=== PATIENT | male | born 1940 | race Caucasian/White ===

== ENCOUNTER 2017-08-20 06:57 | Inpatient (IN) | payer MEDICARE, BC ==
[~2017-08-20] VITALS: Ht 175.3 cm; Wt 90.0 kg
[2017-08-20] VITALS (7 sets, daily range): BP systolic 122–136; BP diastolic 67–79
[~2017-08-20 06:57] MED LIST: ASPI-1071 PO; ATOR20TA PO; AZIT500T2 PO; TICA90TA2 PO
[2017-08-20] MEDS ORDERED: aspirin 81mg tab.chew PO ONE (07:10)
[2017-08-20 07:28] LABS: BASOPHILS % (AUTO) 0.1 % (0-1); EOSINOPHILS # (AUTO) 0.3 X10'3 (0-0.9); EOSINOPHILS % (AUTO) 3.8 % (0-6); HEMOGLOBIN 12.9 g/dl (14.0-17.9); LYMPHOCYTES # (AUTO) 1.1 X10'3 (1.1-4.8); LYMPHOCYTES % (AUTO) 14.1 % (21-51); MEAN CORPUSCULAR HEMOGLOBIN 29.8 PG (27.0-31.0); MEAN CORPUSCULAR HGB CONC 33.1 % (33.0-36.5); MEAN CORPUSCULAR VOLUME 90.1 FL (78-98); MEAN PLATELET VOLUME 6.7 FL (7.4-10.4); MONOCYTES # (AUTO) 0.6 X10'3 (0-0.9); MONOCYTES % (AUTO) 7.7 % (2-12); NEUTROPHILS % (AUTO) 74.3 % (42-75); PLATELET COUNT 281 X10'3 (140-440); RED BLOOD COUNT 4.33 X10'6 (4.70-6.10); RED CELL DISTRIBUTION WIDTH 14.5 % (11.5-14.5)
[2017-08-20 07:48] LABS: ALANINE AMINOTRANSFERASE 21 U/L (12-78); ALBUMIN 3.5 G/DL (3.4-5.0); ALKALINE PHOSPHATASE 69 IU/L (46-116); ANION GAP 8 (8-16); ASPARTATE AMINO TRANSFERASE 18 U/L (10-37); BILIRUBIN,TOTAL 0.3 MG/DL (0.1-1.0); BLOOD UREA NITROGEN 11 MG/DL (7-18); BUN/CREATININE RATIO 10.5 (5.4-32.0); CALCIUM 9.7 MG/DL (8.5-10.1); CHLORIDE 107 MMOL/L (99-107); CREATININE 1.05 MG/DL (0.60-1.10); GLUCOSE 99 MG/DL (70-104); POTASSIUM 4.6 MMOL/L (3.5-5.1); SODIUM 142 MMOL/L (135-145); TOTAL CARBON DIOXIDE 26.8 MMOL/L (24-32); TOTAL PROTEIN 6.9 G/DL (6.4-8.2); eGFR 69 ML/MIN
[2017-08-20 07:54] LABS: MAGNESIUM 1.9 MG/DL (1.5-2.4)
[2017-08-20] MEDS ORDERED: acetaminophen 325mg tablet PO PRN (09:00)
[2017-08-20] MEDS ORDERED: magnesium Cl slow-release 64mg tablet PO PRN (09:00)
[2017-08-20] MEDS ORDERED: ondansetron/PF 4mg/2ml inj IV PRN (09:00)
[2017-08-20] MEDS ORDERED: mag hydrox/Alum hydrox/simeth 30ml oral suspension PO PRN (09:00)
[2017-08-20] MEDS ORDERED: potassium Cl 40MEQ/NS 500ml 500 ML IV PRN ×2 (09:00)
[2017-08-20] MEDS ORDERED: morphine sulfate 8 MG/ML SYRINGE IV ONE (09:00)
[2017-08-20] MEDS ORDERED: magnesium hydroxide 30ml (MOM) UD suspension PO PRN (09:00)
[2017-08-20] MEDS ORDERED: nitroGLYCERIN 0.4mg SUBLingual tab SL PRN ×2 (09:00→09:05)
[2017-08-20] MEDS ORDERED: ondansetron/PF 4mg/2ml inj IV ONE (09:00)
[2017-08-20] MEDS ORDERED: potassium Cl 20 mEq SR tablet PO PRN ×2 (09:00)
[2017-08-20] MEDS ORDERED: magnesium 4gm in 100ml NS 100 ML IV PRN (09:00)
[2017-08-20] MEDS ORDERED: magnesium 2GM in 50ml NS 50 ML IV PRN (09:00)
[2017-08-20] MEDS: aspirin 81mg tablet.DR PO SCH (09:05)
[2017-08-20] MEDS ORDERED: regadenoson 0.4mg/5ml syringe IV ONE (09:05)
[2017-08-20] MEDS ORDERED: aminophylline 250mg/10ml inj. IV PRN (09:05)
[2017-08-20] MEDS ORDERED: metoprolol tartrate 1mg/ml inj IV PRN (09:05)
[2017-08-20] MEDS: ticagrelor 90mg tablet PO SCH (20:34)
[2017-08-20] MEDS: heparin, porcine 5000 units/ml vial SQ SCH (20:39)
[2017-08-20] MEDS ORDERED: atorvastatin 20mg tablet PO SCH (21:00)
[2017-08-21 02:00] VITALS: BP 136/73
[2017-08-21 05:29] LABS: BASOPHILS % (AUTO) 0.3 % (0-1); EOSINOPHILS # (AUTO) 0.4 X10'3 (0-0.9); EOSINOPHILS % (AUTO) 7.5 % (0-6); HEMATOCRIT 37.5 % (42.0-52.0); HEMOGLOBIN 12.5 g/dl (14.0-17.9); LYMPHOCYTES # (AUTO) 1.1 X10'3 (1.1-4.8); LYMPHOCYTES % (AUTO) 19.9 % (21-51); MEAN CORPUSCULAR HGB CONC 33.2 % (33.0-36.5); MEAN CORPUSCULAR VOLUME 90.4 FL (78-98); MEAN PLATELET VOLUME 7.1 FL (7.4-10.4); MONOCYTES # (AUTO) 0.5 X10'3 (0-0.9); MONOCYTES % (AUTO) 10.3 % (2-12); NEUTROPHILS # (AUTO) 3.3 X10'3 (1.8-7.7); PLATELET COUNT 255 X10'3 (140-440); RED BLOOD COUNT 4.15 X10'6 (4.70-6.10); RED CELL DISTRIBUTION WIDTH 14.5 % (11.5-14.5); WHITE BLOOD COUNT 5.3 X10'3 (4.5-11.0)
[2017-08-21 06:21] LABS: ALANINE AMINOTRANSFERASE 21 U/L (12-78); ALBUMIN 3.1 G/DL (3.4-5.0); ALBUMIN/GLOBULIN RATIO 0.9 (1.1-1.5); ALKALINE PHOSPHATASE 61 IU/L (46-116); ANION GAP 6 (8-16); ASPARTATE AMINO TRANSFERASE 18 U/L (10-37); BILIRUBIN,TOTAL 0.4 MG/DL (0.1-1.0); BLOOD UREA NITROGEN 12 MG/DL (7-18); BUN/CREATININE RATIO 11.1 (5.4-32.0); CALCIUM 8.9 MG/DL (8.5-10.1); CHLORIDE 107 MMOL/L (99-107); CREATININE 1.08 MG/DL (0.60-1.10); GLUCOSE 99 MG/DL (70-104); MAGNESIUM 1.8 MG/DL (1.5-2.4); POTASSIUM 4.3 MMOL/L (3.5-5.1); SODIUM 143 MMOL/L (135-145); TOTAL CARBON DIOXIDE 29.7 MMOL/L (24-32); TOTAL PROTEIN 6.6 G/DL (6.4-8.2); eGFR 67 ML/MIN
[2017-08-21 07:00] VITALS: BP 118/62
[2017-08-21] MEDS: ticagrelor 90mg tablet PO SCH (08:00)
[2017-08-21] MEDS: heparin, porcine 5000 units/ml vial SQ SCH (08:00)
[2017-08-21] MEDS ORDERED: K and/or MAG REPLACEMENT MC SCH (08:00)
[2017-08-21] MEDS: aspirin 81mg tablet.DR PO SCH (08:00)
== END 2017-08-21 11:40 | disposition home or self-care (01) | DRG 313 ==
LOC: ER 06:58 → ED HOLD 09:24 → PCU 3S 10:03
PROVIDERS: ADMIT Internal Medicine; ATTEND Internal Medicine
DX: R07.9 Chest pain, unspecified (principal); I25.10 Atherosclerotic heart disease of native coronary artery without angina pectoris; J44.9 Chronic obstructive pulmonary disease, unspecified; E78.5 Hyperlipidemia, unspecified; I25.2 Old myocardial infarction; Z95.5 Presence of coronary angioplasty implant and graft; Z79.82 Long term (current) use of aspirin; Z79.899 Other long term (current) drug therapy; Z88.5 Allergy status to narcotic agent; Z87.01 Personal history of pneumonia (recurrent)
CPT/HCPCS: 36415; 71010; 80053; 83735; 83880; 84484; 85025; 93005; 93306; 99285; J1644; J7030

== ENCOUNTER 2018-01-28 06:26 | Emergency (ER) | payer MEDICARE, BC ==
[~2018-01-28] VITALS: Ht 597.6 cm; Wt 90.0 kg
[~2018-01-28 06:26] MED LIST changes: -AZIT500T2 PO; +COLC1TAB2 PO
[2018-01-28] MEDS ORDERED: colchicine 0.6mg tablet PO ONE ×2 (07:00→08:15)
[2018-01-28] MEDS ORDERED: HYDROcodone/acetaminophen 10/325mg tab PO ONE (07:00)
[2018-01-28 07:31] LABS: BASOPHILS % (AUTO) 0.2 % (0-1); EOSINOPHILS # (AUTO) 0.5 X10'3 (0-0.9); EOSINOPHILS % (AUTO) 7.5 % (0-6); HEMATOCRIT 36.3 % (42.0-52.0); HEMOGLOBIN 12.3 g/dl (14.0-17.9); LYMPHOCYTES # (AUTO) 0.8 X10'3 (1.1-4.8); LYMPHOCYTES % (AUTO) 11.7 % (21-51); MEAN CORPUSCULAR HEMOGLOBIN 30.7 PG (27.0-31.0); MEAN CORPUSCULAR HGB CONC 33.9 % (33.0-36.5); MEAN CORPUSCULAR VOLUME 90.6 FL (78-98); MEAN PLATELET VOLUME 6.8 FL (7.4-10.4); MONOCYTES # (AUTO) 0.7 X10'3 (0-0.9); MONOCYTES % (AUTO) 9.9 % (2-12); NEUTROPHILS % (AUTO) 70.7 % (42-75); PLATELET COUNT 257 X10'3 (140-440); RED BLOOD COUNT 4.01 X10'6 (4.70-6.10); RED CELL DISTRIBUTION WIDTH 14.9 % (11.5-14.5); WHITE BLOOD COUNT 7.1 X10'3 (4.5-11.0)
[2018-01-28 08:16] LABS: ALANINE AMINOTRANSFERASE 13 U/L (12-78); ALBUMIN 3.2 G/DL (3.4-5.0); ALBUMIN/GLOBULIN RATIO 0.8 (1.1-1.5); ALKALINE PHOSPHATASE 76 IU/L (46-116); ANION GAP 7 (8-16); ASPARTATE AMINO TRANSFERASE 17 U/L (10-37); BILIRUBIN,TOTAL 0.5 MG/DL (0.1-1.0); BLOOD UREA NITROGEN 13 MG/DL (7-18); BUN/CREATININE RATIO 12.7 (5.4-32.0); CALCIUM 9.1 MG/DL (8.5-10.1); CHLORIDE 104 MMOL/L (99-107); CREATININE 1.02 MG/DL (0.60-1.10); GLUCOSE 91 MG/DL (70-104); POTASSIUM 3.9 MMOL/L (3.5-5.1); SODIUM 137 MMOL/L (135-145); TOTAL CARBON DIOXIDE 26.5 MMOL/L (24-32); eGFR 71 ML/MIN
[2018-01-28] MEDS ORDERED: HYDR-565 PO (08:39)
[2018-01-28] MEDS ORDERED: NAPR-1154 PO (08:39)
[2018-01-28 08:46] VITALS: BP 120/72
== END 2018-01-28 08:47 | disposition home or self-care (01) ==
LOC: ER 06:27
DX: M10.9 Gout, unspecified (principal); I25.10 Atherosclerotic heart disease of native coronary artery without angina pectoris; E78.00 Pure hypercholesterolemia, unspecified; I25.2 Old myocardial infarction; J44.9 Chronic obstructive pulmonary disease, unspecified; Z98.890 Other specified postprocedural states; Z79.82 Long term (current) use of aspirin; Z79.899 Other long term (current) drug therapy
CPT/HCPCS: 36415; 80053; 84550; 85025; 85651; 99284

== ENCOUNTER 2018-09-15 16:08 | Emergency (ER) | payer MEDICARE, BC ==
[~2018-09-15] VITALS: Ht 175.3 cm; Wt 91.0 kg
[~2018-09-15 16:08] MED LIST changes: +NAPR-1154 PO
[2018-09-15] MEDS ORDERED: ibuprofen tablet 400 MG TABLET PO ONE (17:05)
[2018-09-15] MEDS ORDERED: cyclobenzaprine 10mg tablet PO ONE (17:05)
[2018-09-15] MEDS ORDERED: morphine 4 MG/ML inj SYRINge IM ONE (17:05)
--- NOTE | 2018-09-15 17:16 | NUR ---
pt to xray
[2018-09-15] MEDS ORDERED: ondansetron 4mg rapidly disintigrating tab PO ONE (17:20)
--- NOTE | 2018-09-15 17:41 | NUR ---
to ct scan via wc
--- NOTE | 2018-09-15 19:07 | NUR ---
patient readjusting and taking sling on and off and walking around room despite being asked to remain in the bed due to the medications he received
[2018-09-15 19:08] VITALS: BP 118/60
[2018-09-15] MEDS ORDERED: HYDR-3965 PO (19:08)
[2018-09-15] MEDS ORDERED: ONDA8TAB13 PO (19:08)
== END 2018-09-15 19:30 | disposition home or self-care (01) ==
LOC: ER 16:08
DX: S49.91XA Unspecified injury of right shoulder and upper arm, initial encounter (principal); I25.10 Atherosclerotic heart disease of native coronary artery without angina pectoris; E78.00 Pure hypercholesterolemia, unspecified; I25.2 Old myocardial infarction; J44.9 Chronic obstructive pulmonary disease, unspecified; Z98.61 Coronary angioplasty status; Z98.890 Other specified postprocedural states; Z88.5 Allergy status to narcotic agent; Z79.82 Long term (current) use of aspirin; Z79.899 Other long term (current) drug therapy; W19.XXXA Unspecified fall, initial encounter; Y93.23 Activity, snow (alpine) (downhill) skiing, snowboarding, sledding, tobogganing and snow tubing; Y92.89 Other specified places as the place of occurrence of the external cause; Y99.8 Other external cause status
CPT/HCPCS: 71046; 73010; 73030; 73080; 73200; 96372; 99284; J2270

== ENCOUNTER 2019-01-19 16:00 | Emergency (ER) | payer MEDICARE, BC ==
[~2019-01-19] VITALS: Ht 175.3 cm; Wt 85.0 kg
--- NOTE | 2019-01-19 10:40 | NUR ---
Pt report rec'd from ED , juan antonio Duke. Pt is up to the floor, settled in, and comfortable. Pt VSS, no chest pain, pt c/o pain in left shoulder "with movement". Pt SCD's applied per orders. will continue to monitor.
[~2019-01-19 16:00] MED LIST changes: +ONDA8TAB13 PO
[2019-01-19] MEDS ORDERED: aspirin 81mg tab.chew PO ONE (16:45)
[2019-01-19] MEDS ORDERED: nitroGLYCERIN 0.4mg SUBLingual tab SL PRN ×2 (16:45→20:35)
[2019-01-19 17:00] LABS: BASOPHILS # (AUTO) 0.1 X10'3 (0-0.2); BASOPHILS % (AUTO) 0.6 % (0-1); EOSINOPHILS # (AUTO) 0.2 X10'3 (0-0.9); EOSINOPHILS % (AUTO) 1.3 % (0-6); HEMATOCRIT 37.6 % (42.0-52.0); HEMOGLOBIN 12.3 g/dl (14.0-17.9); LYMPHOCYTES # (AUTO) 1.1 X10'3 (1.1-4.8); LYMPHOCYTES % (AUTO) 9.1 % (21-51); MEAN CORPUSCULAR HGB CONC 32.7 g/dL (33.0-36.5); MEAN CORPUSCULAR VOLUME 91.8 FL (78-98); MEAN PLATELET VOLUME 7.3 FL (7.4-10.4); MONOCYTES # (AUTO) 0.9 X10'3 (0-0.9); MONOCYTES % (AUTO) 6.9 % (2-12); NEUTROPHILS # (AUTO) 10.1 X10'3 (1.8-7.7); NEUTROPHILS % (AUTO) 82.1 % (42-75); PLATELET COUNT 314 X10'3 (140-440); RED CELL DISTRIBUTION WIDTH 13.8 % (11.5-14.5); WHITE BLOOD COUNT 12.3 X10'3 (4.5-11.0)
[2019-01-19 17:05] LABS: PARTIAL THROMBOPLASTIN TIME 28 SECONDS (22-32)
[2019-01-19 17:09] LABS: ALANINE AMINOTRANSFERASE 21 U/L (12-78); ALBUMIN 3.1 G/DL (3.4-5.0); ALBUMIN/GLOBULIN RATIO 0.8 (1.1-1.5); ALKALINE PHOSPHATASE 78 IU/L (46-116); ANION GAP 5 (8-16); ASPARTATE AMINO TRANSFERASE 15 U/L (10-37); BILIRUBIN,TOTAL 0.3 MG/DL (0.1-1.0); BLOOD UREA NITROGEN 15 MG/DL (7-18); CALCIUM 8.5 MG/DL (8.5-10.1); CHLORIDE 105 MMOL/L (99-107); CREATININE 1.15 MG/DL (0.60-1.10); GLUCOSE 137 MG/DL (70-104); POTASSIUM 3.9 MMOL/L (3.5-5.1); SODIUM 138 MMOL/L (135-145); TOTAL PROTEIN 7.2 G/DL (6.4-8.2); eGFR 62 ML/MIN
[2019-01-19 18:13] LABS: C-REACTIVE PROTEIN 2.95 MG/DL (0.0-0.5)
[2019-01-19] MEDS ORDERED: FLO0.4C PO (19:10)
[2019-01-19] MEDS ORDERED: MONT10TA21 PO (19:10)
[2019-01-19] MEDS ORDERED: PRED5TAB PO (19:10)
[2019-01-19] MEDS ORDERED: ROSU10TA2 PO (19:10)
[2019-01-19] MEDS ORDERED: EZET10TA13 PO (19:30)
[2019-01-19] MEDS ORDERED: ondansetron/PF 4mg/2ml inj IV PRN (20:35)
[2019-01-19] MEDS ORDERED: morphine 2 MG/ML inj. syringe IV PRN ×2 (20:35)
[2019-01-19] MEDS ORDERED: magnesium hydroxide 30ml (MOM) UD suspension PO PRN (20:35)
[2019-01-19] MEDS ORDERED: mag hydrox/Alum hydrox/simeth 30ml oral suspension PO PRN (20:35)
[2019-01-19] MEDS ORDERED: acetaminophen 325mg tablet PO PRN (20:35)
[2019-01-19] MEDS ORDERED: HYDROcodone/acetaminophen 5mg/325mg tablet PO PRN (20:35)
[2019-01-19 20:49] VITALS: BP 148/90
--- NOTE | 2019-01-20 00:06 | NUR ---
dr Torre has rounded on the patient at this time and the Pt describes pain that involves the left shoulder "with movement". there is no chest pain, all labs are clear, VSS pt has been d/c'd to home with self care. all paperwork is reviewed and PIV is d/c'd. 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 all belongings sent with pt.
[2019-01-20] MEDS ORDERED: aspirin 81mg tablet.DR PO SCH ×2 (08:00)
[2019-01-20] MEDS ORDERED: tamsulosin 0.4mg capsule PO SCH (08:00)
[2019-01-20] MEDS ORDERED: montelukast 10mg tablet PO SCH (08:00)
[2019-01-20] MEDS ORDERED: predniSONE 5mg tablet PO SCH (08:00)
[2019-01-20] MEDS ORDERED: ezetimibe 10mg tablet PO SCH (08:00)
[2019-01-20] MEDS ORDERED: naproxen 500mg tablet PO SCH (08:00)
[2019-01-20] MEDS ORDERED: atorvastatin 20mg tablet PO SCH (08:00)
== END 2019-01-20 00:42 | disposition home or self-care (01) ==
LOC: ER 16:01 → UNDOADMIN 22:22 → SUR 3N 22:22 → EDBEDREQ 22:37 → UNDODISIN 01-20 00:42 → ER 01-20 00:42
DX: R07.9 Chest pain, unspecified (principal); I25.10 Atherosclerotic heart disease of native coronary artery without angina pectoris; E78.00 Pure hypercholesterolemia, unspecified; I25.2 Old myocardial infarction; J44.9 Chronic obstructive pulmonary disease, unspecified; Z98.890 Other specified postprocedural states; Z88.5 Allergy status to narcotic agent; Z79.82 Long term (current) use of aspirin; Z79.899 Other long term (current) drug therapy; Z95.1 Presence of aortocoronary bypass graft
CPT/HCPCS: 36415; 71045; 80053; 84484; 85025; 85610; 85651; 85730; 86140; 87070; 93005; 99285; G0378

== ENCOUNTER 2019-04-19 13:15 | Emergency (ER) | payer MEDICARE, BC ==
[~2019-04-19] VITALS: Ht 175.3 cm; Wt 84.0 kg
[~2019-04-19 13:15] MED LIST changes: -ATOR20TA PO; -COLC1TAB2 PO; +FLO0.4C PO; +MONT10TA21 PO; -ONDA8TAB13 PO; +PRED5TAB PO; +ROSU10TA2 PO; -TICA90TA2 PO; +ZET10T PO
[2019-04-19 13:17] VITALS: BP 131/86
[2019-04-19 13:47] LABS: BASOPHILS % (AUTO) 0.4 % (0-1); EOSINOPHILS # (AUTO) 0.4 X10'3 (0-0.9); EOSINOPHILS % (AUTO) 5.1 % (0-6); HEMATOCRIT 40.3 % (42.0-52.0); HEMOGLOBIN 13.4 g/dl (14.0-17.9); LYMPHOCYTES % (AUTO) 13.9 % (21-51); MEAN CORPUSCULAR HEMOGLOBIN 30.3 PG (27.0-31.0); MEAN CORPUSCULAR HGB CONC 33.4 g/dL (33.0-36.5); MEAN CORPUSCULAR VOLUME 90.6 FL (78-98); MONOCYTES # (AUTO) 0.7 X10'3 (0-0.9); MONOCYTES % (AUTO) 9.4 % (2-12); NEUTROPHILS # (AUTO) 5.3 X10'3 (1.8-7.7); NEUTROPHILS % (AUTO) 71.2 % (42-75); PLATELET COUNT 313 X10'3 (140-440); RED BLOOD COUNT 4.44 X10'6 (4.70-6.10); RED CELL DISTRIBUTION WIDTH 14.6 % (11.5-14.5); WHITE BLOOD COUNT 7.5 X10'3 (4.5-11.0)
[2019-04-19 14:03] LABS: ALANINE AMINOTRANSFERASE 22 U/L (12-78); ALBUMIN 3.4 G/DL (3.4-5.0); ALBUMIN/GLOBULIN RATIO 0.9 (1.1-1.5); ALKALINE PHOSPHATASE 73 IU/L (46-116); ANION GAP 7 (8-16); ASPARTATE AMINO TRANSFERASE 15 U/L (10-37); BILIRUBIN,TOTAL 0.4 MG/DL (0.1-1.0); BLOOD UREA NITROGEN 15 MG/DL (7-18); BUN/CREATININE RATIO 13.9 (5.4-32.0); CALCIUM 8.6 MG/DL (8.5-10.1); CHLORIDE 105 MMOL/L (99-107); CREATININE 1.08 MG/DL (0.60-1.10); GLUCOSE 114 MG/DL (70-104); SODIUM 137 MMOL/L (135-145); TOTAL CARBON DIOXIDE 24.9 MMOL/L (24-32); TOTAL PROTEIN 7.3 G/DL (6.4-8.2); eGFR 66 ML/MIN
[2019-04-19 14:06] LABS: PARTIAL THROMBOPLASTIN TIME 27 SECONDS (22-32)
== END 2019-04-19 17:43 | disposition home or self-care (01) ==
LOC: ER 13:16
DX: R68.84 Jaw pain (principal); R06.02 Shortness of breath; M25.512 Pain in left shoulder; I25.10 Atherosclerotic heart disease of native coronary artery without angina pectoris; E78.00 Pure hypercholesterolemia, unspecified; I25.2 Old myocardial infarction; J44.9 Chronic obstructive pulmonary disease, unspecified; Z98.61 Coronary angioplasty status; Z95.1 Presence of aortocoronary bypass graft; Z98.890 Other specified postprocedural states
CPT/HCPCS: 36415; 71045; 80053; 82948; 84484; 85025; 85379; 85610; 85730; 93005; 99284

== ENCOUNTER 2019-06-09 07:41 | Inpatient (IN) | payer MEDICARE, BC ==
[~2019-06-09] VITALS: Ht 175.3 cm; Wt 83.2 kg
[2019-06-09] MEDS ORDERED: ipratropium/albuterol 3ml nebule NEB ONE (08:35)
[2019-06-09] MEDS ORDERED: methylPREDNISolone sod succ 125mg/2ml vial IV ONE (08:35)
--- NOTE | 2019-06-09 08:50 | NUR ---
RT AT BEDSIDE FOR BREATHING TREATMENT PER ORDERS NOW.
[2019-06-09 08:54] LABS: BASOPHILS % (AUTO) 0.1 % (0-1); D-DIMER 0.82 MG/L FEU (0-0.50); EOSINOPHILS % (AUTO) 0.1 % (0-6); HEMOGLOBIN 12.6 g/dl (14.0-17.9); LYMPHOCYTES # (AUTO) 0.4 X10'3 (1.1-4.8); LYMPHOCYTES % (AUTO) 4.7 % (21-51); MEAN CORPUSCULAR HEMOGLOBIN 30.4 PG (27.0-31.0); MEAN CORPUSCULAR HGB CONC 33.2 g/dL (33.0-36.5); MEAN CORPUSCULAR VOLUME 91.4 FL (78-98); MEAN PLATELET VOLUME 6.9 FL (7.4-10.4); MONOCYTES # (AUTO) 0.6 X10'3 (0-0.9); MONOCYTES % (AUTO) 7.3 % (2-12); NEUTROPHILS # (AUTO) 7.8 X10'3 (1.8-7.7); NEUTROPHILS % (AUTO) 87.8 % (42-75); PLATELET COUNT 276 X10'3 (140-440); RED BLOOD COUNT 4.16 X10'6 (4.70-6.10); RED CELL DISTRIBUTION WIDTH 15.2 % (11.5-14.5); WHITE BLOOD COUNT 8.9 X10'3 (4.5-11.0)
[2019-06-09 08:58] LABS: ALANINE AMINOTRANSFERASE 34 U/L (12-78); ALBUMIN 3.1 G/DL (3.4-5.0); ALBUMIN/GLOBULIN RATIO 0.8 (1.1-1.5); ALKALINE PHOSPHATASE 70 IU/L (46-116); ANION GAP 12 (8-16); ASPARTATE AMINO TRANSFERASE 38 U/L (10-37); BILIRUBIN,TOTAL 0.3 MG/DL (0.1-1.0); BLOOD UREA NITROGEN 15 MG/DL (7-18); CALCIUM 8.6 MG/DL (8.5-10.1); CHLORIDE 105 MMOL/L (99-107); CREATININE 1.15 MG/DL (0.60-1.10); GLUCOSE 99 MG/DL (70-104); POTASSIUM 3.8 MMOL/L (3.5-5.1); SODIUM 141 MMOL/L (135-145); TOTAL CARBON DIOXIDE 24.4 MMOL/L (24-32); TOTAL PROTEIN 7.2 G/DL (6.4-8.2); eGFR 62 ML/MIN
[2019-06-09] MEDS ORDERED: albuterol 2.5 MG/3 ML nebule CONTNEB PRN (09:15)
--- NOTE | 2019-06-09 09:37 | NUR ---
UPDATED GARCIA PA OF PT LACTIC 3.9, DISCUSSED FLUID RESUCITATION RE SEPSIS, ORDERS TO FOLLOW.
[2019-06-09] MEDS ORDERED: normal saline 1000ML IV soln IVB ONE ×2 (09:40→11:55)
--- NOTE | 2019-06-09 09:41 | NUR ---
FLU SWAB COLLECTED BY YADI HOWARD, WALKED DOWN TO LAB BY KITTY FISCHER NOW
[2019-06-09] MEDS ORDERED: iohexol 350MG/ML 100ml bottle IV ONE (09:54)
[2019-06-09] MEDS ORDERED: PRED5TAB PO (11:42)
[2019-06-09] MEDS ORDERED: ASPI-611 PO (11:42)
[2019-06-09] MEDS ORDERED: LEVO750T21 PO (11:42)
[2019-06-09] MEDS ORDERED: MELO-100 PO (11:42)
[2019-06-09] MEDS ORDERED: FOLI0.4T14 PO (11:42)
[2019-06-09] MEDS ORDERED: ALBU8HFA PO (11:43)
--- NOTE | 2019-06-09 11:49 | NUR ---
GARCIA INFORMED 2 HOUR LACTIC 5.0, DISCUSSED FLUID RESUSCUTATION BASED ON WEIGHT IS 2500 ML, GARCIA DOES NOT WANT TO GIVE ANY ADDITIONAL FLUIDS AT THIS TIME DUE TO PT AGE
[2019-06-09] MEDS ORDERED: acetaminophen 325mg tablet PO PRN (12:30)
[2019-06-09] MEDS ORDERED: magnesium hydroxide 30ml (MOM) UD suspension PO PRN (12:30)
[2019-06-09] MEDS ORDERED: oseltamivir phos 75mg capsule PO ONE (12:30)
[2019-06-09] MEDS ORDERED: CefTRIAXone/D5W-Rocephin 1gm 50 ML IV ONE (12:30)
[2019-06-09] MEDS ORDERED: ondansetron/PF 4mg/2ml inj IV PRN (12:30)
[2019-06-09] MEDS ORDERED: mag hydrox/Alum hydrox/simeth 30ml oral suspension PO PRN (12:30)
--- NOTE | 2019-06-09 12:55 | NUR ---
Patient in room ED 5. I have received report from Darshan HOWARD and had the opportunity to ask questions and assume patient care.
[2019-06-09 13:00] VITALS: BP 104/72
--- NOTE | 2019-06-09 13:00 | NUR ---
Patient arrived to PCU unit. Vital signs taken and within normal limits and stable. wallpaper scraper placed. Patient oriented to room and call light.
[2019-06-09] MEDS: methylPREDNISolone sod succ 125mg/2ml vial IV SCH ×2 (13:45→20:35)
[2019-06-09] MEDS: normal saline 1000ml 1,000 ML IV SCH ×2 (13:46→22:09)
[2019-06-09 15:00] VITALS: BP 122/59
[2019-06-09] MEDS: ipratropium/albuterol 3ml nebule NEB SCH ×3 (15:00→22:18)
[2019-06-09] MEDS ORDERED: ATOR20TA66 PO (17:05)
[2019-06-09] MEDS ORDERED: FURO-150 PO (17:05)
[2019-06-09] MEDS ORDERED: DIGO125T97 PO (17:05)
[2019-06-09] MEDS ORDERED: METO-384 PO (17:05)
[2019-06-09] MEDS ORDERED: CYAN500T46 PO (17:05)
[2019-06-09] MEDS ORDERED: BUDE10.2 INH (17:05)
[2019-06-09] MEDS ORDERED: RIVA20TA PO (17:05)
[2019-06-09] MEDS ORDERED: PANT20TA3 PO (17:05)
[2019-06-09] MEDS ORDERED: SPIR25TA5 PO (17:05)
[2019-06-09] MEDS ORDERED: CHOL100044 PO (17:05)
[2019-06-09] MEDS ORDERED: LISI-604 PO (17:05)
[2019-06-09] MEDS ORDERED: FLO0.4C PO (17:05)
[2019-06-09] MEDS ORDERED: OLAN5TAB26 PO (17:05)
[2019-06-09] MEDS ORDERED: VENL75TA4 PO (17:05)
[2019-06-09] MEDS ORDERED: LORA10TA7 PO (17:05)
[2019-06-09] MEDS ORDERED: CYCL-394 PO (17:22)
[2019-06-09 18:00] VITALS: BP 115/63
--- NOTE | 2019-06-09 18:16 | NUR ---
Boris documentation: I have reviewed and agree with all interventions, assessments performed and documented by Thuy HOWARD. Addendum: 06/09/19 at 1826 by Eva García RN [facility] Medication Administration: For this medication-pass time frame, all medication were reviewed, dispensed, administered and documented per hospital policy by Thuy HOWARD.
--- NOTE | 2019-06-09 18:30 | NUR ---
Patient in room PCU 3019. I have received report from GIGI and had the opportunity to ask questions and assume patient care.
[2019-06-09] MEDS ORDERED: enoxaparin 100mg/ml syringe SUBCUT ONE (18:35)
[2019-06-09] MEDS ORDERED: enoxaparin 60mg/0.6ml syringe SUBCUT ONE (18:40)
[2019-06-09] MEDS ORDERED: enoxaparin 30mg/0.3ml syringe SUBCUT ONE (18:40)
[2019-06-09 18:50] VITALS: BP 115/63
[2019-06-09] MEDS ORDERED: heparin, porcine 5000 units/ml vial SQ SCH (20:00)
[2019-06-09] MEDS: naproxen 500mg tablet PO SCH (20:35)
[2019-06-09] MEDS: oseltamivir phos 75mg capsule PO SCH (20:35)
[2019-06-09 22:00] VITALS: BP 113/68
[2019-06-10 02:30] VITALS: BP 125/69
--- NOTE | 2019-06-10 02:30 | NUR ---
OXYGEN SATURATIONS 87% ON RA, ENCOURAGED CDB. PLACED ON 2L NC, OXYGEN SATURATIONS 94%
[2019-06-10] MEDS: methylPREDNISolone sod succ 125mg/2ml vial IV SCH ×2 (03:00→08:09)
[2019-06-10] MEDS: ipratropium/albuterol 3ml nebule NEB SCH ×6 (03:14→23:13)
[2019-06-10 05:12] LABS: ALBUMIN 2.8 G/DL (3.4-5.0); ANION GAP 10 (8-16); BLOOD UREA NITROGEN 14 MG/DL (7-18); BUN/CREATININE RATIO 12.2 (5.4-32.0); CALCIUM 8.2 MG/DL (8.5-10.1); CHLORIDE 107 MMOL/L (99-107); CREATININE 1.15 MG/DL (0.60-1.10); GLUCOSE 128 MG/DL (70-104); POTASSIUM 3.9 MMOL/L (3.5-5.1); SODIUM 142 MMOL/L (135-145); eGFR 62 ML/MIN
[2019-06-10 05:40] LABS: BASOPHILS % (AUTO) 0.1 % (0-1); EOSINOPHILS % (AUTO) 0 % (0-6); HEMATOCRIT 35.1 % (42.0-52.0); HEMOGLOBIN 11.8 g/dl (14.0-17.9); LYMPHOCYTES # (AUTO) 0.4 X10'3 (1.1-4.8); LYMPHOCYTES % (AUTO) 4.7 % (21-51); MEAN CORPUSCULAR HEMOGLOBIN 30.8 PG (27.0-31.0); MEAN CORPUSCULAR HGB CONC 33.5 g/dL (33.0-36.5); MEAN CORPUSCULAR VOLUME 91.8 FL (78-98); MEAN PLATELET VOLUME 7.2 FL (7.4-10.4); MONOCYTES # (AUTO) 0.4 X10'3 (0-0.9); MONOCYTES % (AUTO) 5.1 % (2-12); NEUTROPHILS # (AUTO) 7.1 X10'3 (1.8-7.7); NEUTROPHILS % (AUTO) 90.1 % (42-75); PLATELET COUNT 256 X10'3 (140-440); RED BLOOD COUNT 3.83 X10'6 (4.70-6.10); RED CELL DISTRIBUTION WIDTH 15.4 % (11.5-14.5); WHITE BLOOD COUNT 7.9 X10'3 (4.5-11.0)
[2019-06-10 06:00] VITALS: BP 133/64
--- NOTE | 2019-06-10 06:25 | NUR ---
Patient in room PCU 3019. I have received report from Shannon HOWARD and had the opportunity to ask questions and assume patient care.
--- NOTE | 2019-06-10 06:31 | NUR ---
Problems reprioritized. Patient report given, questions answered & plan of care reviewed with DONNA.
[2019-06-10] MEDS ORDERED: naproxen 500mg tablet PO SCH (08:00)
[2019-06-10] MEDS: oseltamivir phos 75mg capsule PO SCH ×2 (08:07→21:19)
[2019-06-10] MEDS: tamsulosin 0.4mg capsule PO SCH (08:08)
[2019-06-10] MEDS: aspirin 81mg tab.chew PO SCH (08:08)
[2019-06-10] MEDS: ezetimibe 10mg tablet PO SCH (08:08)
[2019-06-10] MEDS: montelukast 10mg tablet PO SCH (08:08)
[2019-06-10] MEDS: naproxen 500mg tablet PO SCH ×2 (08:08→21:18)
[2019-06-10] MEDS: folic acid 1mg tablet PO SCH (08:08)
[2019-06-10] MEDS ORDERED: pneumococcal 23-VAL P-sac vacc 25 mcg/0.5ml vial IMVAC ONE (10:00)
[2019-06-10] MEDS ORDERED: FLU VACC QS2019-20 36MOS UP/PF 60 MCG/0.5 ML SYRINGE IMVAC ONE (10:00)
[2019-06-10] MEDS: normal saline 1000ml 1,000 ML IV SCH (12:27)
[2019-06-10 15:00] VITALS: BP 119/65
--- NOTE | 2019-06-10 18:18 | NUR ---
[facility] documentation: I have reviewed and agree with all interventions, assessments performed and documented by Thuy HOWARD. [facility] Medication Administration: For this medication-pass time frame, all medication were reviewed, dispensed, administered and documented per hospital policy by Thuy HOWARD.
--- NOTE | 2019-06-10 18:18 | NUR ---
Problems reprioritized. Patient report given, questions answered & plan of care reviewed with Lori HOWARD. Patient stable at time of transfer of care.
--- NOTE | 2019-06-10 18:30 | NUR ---
Patient in room PCU 3019. I have received report from Sis RN, Thuy RN and had the opportunity to ask questions and assume patient care.
[2019-06-10 19:00] VITALS: BP 112/69
[2019-06-10] MEDS: methylPREDNISolone sod succ/PF 40mg inj. IV SCH (21:17)
[2019-06-10] MEDS: apixaban 5mg tablet PO SCH (21:19)
[2019-06-10 23:00] VITALS: BP 113/63
[2019-06-11] MEDS: ipratropium/albuterol 3ml nebule NEB SCH ×3 (02:57→11:00)
[2019-06-11 03:00] VITALS: BP 103/57
[2019-06-11 05:49] LABS: BASOPHILS % (AUTO) 0.1 % (0-1); EOSINOPHILS % (AUTO) 0 % (0-6); HEMOGLOBIN 11.7 g/dl (14.0-17.9); LYMPHOCYTES # (AUTO) 0.5 X10'3 (1.1-4.8); LYMPHOCYTES % (AUTO) 4.7 % (21-51); MEAN CORPUSCULAR HEMOGLOBIN 31.5 PG (27.0-31.0); MEAN CORPUSCULAR HGB CONC 34.4 g/dL (33.0-36.5); MEAN CORPUSCULAR VOLUME 91.7 FL (78-98); MEAN PLATELET VOLUME 7.2 FL (7.4-10.4); MONOCYTES # (AUTO) 0.5 X10'3 (0-0.9); NEUTROPHILS # (AUTO) 9.2 X10'3 (1.8-7.7); NEUTROPHILS % (AUTO) 90.2 % (42-75); PLATELET COUNT 249 X10'3 (140-440); RED CELL DISTRIBUTION WIDTH 15.6 % (11.5-14.5); WHITE BLOOD COUNT 10.2 X10'3 (4.5-11.0)
[2019-06-11 05:55] LABS: ANION GAP 7 (8-16); BLOOD UREA NITROGEN 21 MG/DL (7-18); BUN/CREATININE RATIO 18.4 (5.4-32.0); CHLORIDE 107 MMOL/L (99-107); CREATININE 1.14 MG/DL (0.60-1.10); GLUCOSE 124 MG/DL (70-104); POTASSIUM 4.1 MMOL/L (3.5-5.1); SODIUM 142 MMOL/L (135-145); TOTAL CARBON DIOXIDE 27.7 MMOL/L (24-32)
[2019-06-11 05:56] LABS: ALBUMIN 2.8 G/DL (3.4-5.0); CALCIUM 8.6 MG/DL (8.5-10.1); eGFR 62 ML/MIN
[2019-06-11 06:00] VITALS: BP 114/65
--- NOTE | 2019-06-11 06:24 | NUR ---
Problems reprioritized. Patient report given, questions answered & plan of care reviewed with LEE Velasquez.
--- NOTE | 2019-06-11 06:24 | NUR ---
Patient in room PCU 3019. I have received report from Lori HOWARD and had the opportunity to ask questions and assume patient care.
[2019-06-11] MEDS: ezetimibe 10mg tablet PO SCH (07:59)
[2019-06-11] MEDS: aspirin 81mg tab.chew PO SCH (08:00)
[2019-06-11] MEDS: montelukast 10mg tablet PO SCH (08:00)
[2019-06-11] MEDS: apixaban 5mg tablet PO SCH (08:00)
[2019-06-11] MEDS: folic acid 1mg tablet PO SCH (08:01)
[2019-06-11] MEDS: tamsulosin 0.4mg capsule PO SCH (08:01)
[2019-06-11] MEDS: naproxen 500mg tablet PO SCH (08:01)
[2019-06-11] MEDS: methylPREDNISolone sod succ/PF 40mg inj. IV SCH (08:01)
[2019-06-11] MEDS: oseltamivir phos 75mg capsule PO SCH (08:11)
[2019-06-11 11:00] VITALS: BP 114/64
[2019-06-11] MEDS ORDERED: TAM75C PO (11:01)
[2019-06-11] MEDS ORDERED: PRED20TA PO (11:01)
--- NOTE | 2019-06-11 12:45 | NUR ---
Patient stable for discharge per MD orders. All discharge instructions reviewed with patient and all questions answered. New prescriptions called into patient's preferred pharmacy. PIV & campus monitor discontinued. Belongings collected and sent with patient. Patient left in private vehicle with . Patient wheeled to lobby by PCT aide.
[2019-06-12] MEDS ORDERED: FLU VACC QS2019-20 36MOS UP/PF 60 MCG/0.5 ML SYRINGE IMVAC ONE ×2 (08:00)
[2019-06-12] MEDS ORDERED: pneumococcal 23-VAL P-sac vacc 25 mcg/0.5ml vial IMVAC ONE (08:00)
== END 2019-06-11 12:47 | disposition home or self-care (01) | DRG 202 ==
LOC: ER 07:41 → ED HOLD 12:52 → PCU 3S 13:00
PROVIDERS: ADMIT Family Medicine; ATTEND Family Medicine
PROC: B32T1ZZ Computerized Tomography (CT Scan) of Left Pulmonary Artery using Low Osmolar Contrast (ICD-10-PCS; principal; 2019-06-09)
PROC: B3201ZZ Computerized Tomography (CT Scan) of Thoracic Aorta using Low Osmolar Contrast (ICD-10-PCS; 2019-06-09)
PROC: B32S1ZZ Computerized Tomography (CT Scan) of Right Pulmonary Artery using Low Osmolar Contrast (ICD-10-PCS; 2019-06-09)
DX: J20.9 Acute bronchitis, unspecified (principal); J44.0 Chronic obstructive pulmonary disease with (acute) lower respiratory infection; I27.82 Chronic pulmonary embolism; J44.1 Chronic obstructive pulmonary disease with (acute) exacerbation; J10.1 Influenza due to other identified influenza virus with other respiratory manifestations; E78.00 Pure hypercholesterolemia, unspecified; I25.10 Atherosclerotic heart disease of native coronary artery without angina pectoris; Z88.6 Allergy status to analgesic agent; I25.2 Old myocardial infarction; Z95.1 Presence of aortocoronary bypass graft; Z95.5 Presence of coronary angioplasty implant and graft; Z79.82 Long term (current) use of aspirin
CPT/HCPCS: 36415; 71046; 71275; 80048; 80053; 83605; 83880; 84484; 85025; 85379; 87040; 87081; 87502; 87503; 90732; 93005; 94640; 94760; 96374; 97116; 97161; 99285; G0378; J0696; J1650; J2920; J2930; J7030; Q2037; Q9967

== ENCOUNTER 2019-10-28 14:28 | Emergency (ER) | payer MEDICARE, BC ==
[~2019-10-28] VITALS: Ht 175.3 cm; Wt 85.0 kg
[~2019-10-28 14:28] MED LIST changes: +ALBU8HFA PO; -ASPI-1071 PO; +ASPI-611 PO; +ATOR20TA66 PO; +BUDE10.2 INH; +CHOL100044 PO; +CYAN500T46 PO; +CYCL-394 PO; +DIGO125T97 PO; +FOLI0.4T14 PO; +FURO-150 PO; +LEVO750T21 PO; +LISI-604 PO; +LORA10TA7 PO; +MELO-100 PO; +METO-384 PO; -NAPR-1154 PO; +OLAN5TAB26 PO; +PANT20TA3 PO; -PRED5TAB PO; +RIVA20TA PO; -ROSU10TA2 PO; +SPIR25TA5 PO; +VENL75TA4 PO
[2019-10-28 14:57] VITALS: BP 116/74
[2019-10-28] MEDS ORDERED: aspirin 81mg tab.chew PO ONE (15:05)
[2019-10-28 15:21] LABS: BASOPHILS # (AUTO) 0.1 X10'3 (0-0.2); BASOPHILS % (AUTO) 1.1 % (0-1); EOSINOPHILS # (AUTO) 0.1 X10'3 (0-0.9); EOSINOPHILS % (AUTO) 1.4 % (0-6); HEMATOCRIT 38.1 % (42.0-52.0); HEMOGLOBIN 12.9 g/dl (14.0-17.9); LYMPHOCYTES # (AUTO) 1.1 X10'3 (1.1-4.8); LYMPHOCYTES % (AUTO) 11.4 % (21-51); MEAN CORPUSCULAR HEMOGLOBIN 30.9 PG (27.0-31.0); MEAN CORPUSCULAR HGB CONC 33.8 g/dL (33.0-36.5); MEAN CORPUSCULAR VOLUME 91.4 FL (78-98); MEAN PLATELET VOLUME 7.1 FL (7.4-10.4); MONOCYTES # (AUTO) 0.7 X10'3 (0-0.9); MONOCYTES % (AUTO) 7.4 % (2-12); NEUTROPHILS # (AUTO) 7.9 X10'3 (1.8-7.7); NEUTROPHILS % (AUTO) 78.7 % (42-75); PLATELET COUNT 373 X10'3 (140-440); RED BLOOD COUNT 4.17 X10'6 (4.70-6.10); RED CELL DISTRIBUTION WIDTH 15.5 % (11.5-14.5)
[2019-10-28 15:26] LABS: ALANINE AMINOTRANSFERASE 13 U/L (12-78); ALBUMIN 3.2 G/DL (3.4-5.0); ALBUMIN/GLOBULIN RATIO 0.8 (1.1-1.5); ALKALINE PHOSPHATASE 83 IU/L (46-116); ANION GAP 9 (8-16); ASPARTATE AMINO TRANSFERASE 17 U/L (10-37); BILIRUBIN,TOTAL 0.3 MG/DL (0.1-1.0); BLOOD UREA NITROGEN 13 MG/DL (7-18); BUN/CREATININE RATIO 13.7 (5.4-32.0); CALCIUM 9.4 MG/DL (8.5-10.1); CHLORIDE 105 MMOL/L (99-107); CREATININE 0.95 MG/DL (0.60-1.10); POTASSIUM 4.4 MMOL/L (3.5-5.1); SODIUM 140 MMOL/L (135-145); TOTAL CARBON DIOXIDE 26.1 MMOL/L (24-32); eGFR 77 ML/MIN
[2019-10-28 15:33] LABS: GLUCOSE 121 MG/DL (70-104)
== END 2019-10-28 16:41 | disposition left against medical advice (07) ==
LOC: ER 14:29
DX: R07.89 Other chest pain (principal); I25.2 Old myocardial infarction; R06.02 Shortness of breath; Z53.21 Procedure and treatment not carried out due to patient leaving prior to being seen by health care provider
CPT/HCPCS: 36415; 71045; 80053; 84484; 85025

== ENCOUNTER 2019-11-20 15:00 | Emergency (ER) | payer MEDICARE, BC ==
[~2019-11-20] VITALS: Ht 175.3 cm; Wt 82.7 kg
[2019-11-20 15:02] VITALS: BP 132/82
[2019-11-20] MEDS ORDERED: PRED20TA PO (15:41)
[2019-11-20] MEDS ORDERED: AMOX-422 PO (15:41)
[2019-11-20] MEDS ORDERED: ALBU6.7H9 INH (15:41)
== END 2019-11-20 15:55 | disposition home or self-care (01) ==
LOC: ER 15:01
DX: J44.9 Chronic obstructive pulmonary disease, unspecified (principal); I25.10 Atherosclerotic heart disease of native coronary artery without angina pectoris; E78.00 Pure hypercholesterolemia, unspecified; I25.2 Old myocardial infarction; Z98.61 Coronary angioplasty status; Z95.0 Presence of cardiac pacemaker; Z98.890 Other specified postprocedural states; Z88.5 Allergy status to narcotic agent; Z79.899 Other long term (current) drug therapy
CPT/HCPCS: 71045; 99283

== ENCOUNTER 2020-05-15 22:28 | Inpatient (IN) | payer MEDICARE, BC ==
[~2020-05-15] VITALS: Ht 175.3 cm; Wt 80.9 kg
[~2020-05-15 22:28] MED LIST changes: +ALBU6.7H9 INH; +PANT20TA18 PO; -PANT20TA3 PO
[2020-05-15 22:56] LABS: BASOPHILS # (AUTO) 0.1 X10'3 (0-0.2); BASOPHILS % (AUTO) 0.7 % (0-1); EOSINOPHILS # (AUTO) 0.3 X10'3 (0-0.9); EOSINOPHILS % (AUTO) 3.5 % (0-6); HEMATOCRIT 35.4 % (42.0-52.0); LYMPHOCYTES # (AUTO) 1.1 X10'3 (1.1-4.8); LYMPHOCYTES % (AUTO) 13.1 % (21-51); MEAN CORPUSCULAR HEMOGLOBIN 31.6 PG (27.0-31.0); MEAN CORPUSCULAR HGB CONC 33.8 g/dL (33.0-36.5); MEAN CORPUSCULAR VOLUME 93.5 FL (78-98); MEAN PLATELET VOLUME 6.9 FL (7.4-10.4); MONOCYTES # (AUTO) 0.7 X10'3 (0-0.9); NEUTROPHILS % (AUTO) 73.7 % (42-75); PLATELET COUNT 321 X10'3 (140-440); RED BLOOD COUNT 3.79 X10'6 (4.70-6.10); RED CELL DISTRIBUTION WIDTH 13.9 % (11.5-14.5); WHITE BLOOD COUNT 8.1 X10'3 (4.5-11.0)
[2020-05-15 23:05] LABS: ALANINE AMINOTRANSFERASE 17 U/L (12-78); ALBUMIN 3.1 G/DL (3.4-5.0); ALBUMIN/GLOBULIN RATIO 0.8 (1.1-1.5); ALKALINE PHOSPHATASE 75 IU/L (46-116); ANION GAP 4 (8-16); ASPARTATE AMINO TRANSFERASE 17 U/L (10-37); BILIRUBIN,TOTAL 0.3 MG/DL (0.1-1.0); BLOOD UREA NITROGEN 14 MG/DL (7-18); BUN/CREATININE RATIO 13.2 (5.4-32.0); CALCIUM 8.6 MG/DL (8.5-10.1); CHLORIDE 105 MMOL/L (99-107); CREATININE 1.06 MG/DL (0.60-1.10); GLUCOSE 94 MG/DL (70-104); POTASSIUM 3.9 MMOL/L (3.5-5.1); SODIUM 138 MMOL/L (135-145); TOTAL CARBON DIOXIDE 28.6 MMOL/L (24-32); eGFR 68 ML/MIN
[2020-05-16] VITALS (9 sets, daily range): BP systolic 107–139; BP diastolic 57–87
[2020-05-16] MEDS ORDERED: aspirin 81mg tab.chew PO ONE
[2020-05-16] MEDS ORDERED: EZET10TA6 PO (00:19)
[2020-05-16] MEDS ORDERED: mag hydrox/Alum hydrox/simeth 30ml oral suspension PO PRN (00:30)
[2020-05-16] MEDS ORDERED: acetaminophen 325mg tablet PO PRN (00:30)
[2020-05-16] MEDS ORDERED: ondansetron/PF 4mg/2ml inj IV PRN (00:30)
[2020-05-16] MEDS ORDERED: magnesium hydroxide 30ml (MOM) UD suspension PO PRN (00:30)
[2020-05-16] MEDS ORDERED: potassium CL 10mEq/100ml bag 100 ML IV PRN ×2 (00:30)
[2020-05-16] MEDS ORDERED: potassium Cl 20 mEq SR tablet PO PRN ×2 (00:30)
[2020-05-16] MEDS ORDERED: regadenoson 0.4mg/5ml syringe IV PRN (00:35)
[2020-05-16] MEDS ORDERED: nitroGLYCERIN 0.4mg SUBLingual tab SL PRN ×2 (00:35)
[2020-05-16] MEDS ORDERED: aminophylline 250mg/10ml inj. IV PRN (00:35)
[2020-05-16] MEDS ORDERED: metoprolol tartrate 1mg/ml inj IV PRN (00:35)
[2020-05-16] MEDS ORDERED: albuterol 2.5 MG/3 ML nebule NEB PRN (00:55)
--- NOTE | 2020-05-16 01:30 | NUR ---
Patient in room PCU 3015. I have received report from Leeanna ED RN and had the opportunity to ask questions and assume patient care.
--- NOTE | 2020-05-16 01:40 | NUR ---
Pt. arrived fr/ER via gurney in no acute distress. Transferred to [address] via amb. Oriented to bed, room, surroundings and POC. NPO f/FLO Scan in am.
[2020-05-16] MEDS ORDERED: albuterol 2.5 MG/3 ML nebule NEB SCH (03:00)
--- NOTE | 2020-05-16 03:30 | NUR ---
Pt. transferred to room 301.
--- NOTE | 2020-05-16 04:00 | NUR ---
Unable to DART pt as he is sleeping. To try at another time.
[2020-05-16 06:30] LABS: HEMOGLOBIN A1C 5.8 % (4.5-6.2)
--- NOTE | 2020-05-16 06:45 | NUR ---
Patient in room PCU 3017. I have received report from Katarina HOWARD and had the opportunity to ask questions and assume patient care.
--- NOTE | 2020-05-16 07:24 | NUR ---
Problems reprioritized. Patient report given, questions answered & plan of care reviewed with Jo Agrawal RN.
[2020-05-16] MEDS ORDERED: ezetimibe 10mg tablet PO SCH (08:00)
[2020-05-16] MEDS ORDERED: montelukast 10mg tablet PO SCH (08:00)
[2020-05-16] MEDS ORDERED: aspirin 81mg tablet.DR PO SCH (08:00)
[2020-05-16] MEDS ORDERED: K and/or MAG REPLACEMENT MC SCH (08:00)
--- NOTE | 2020-05-16 11:52 | NUR ---
Dr. White PAGER ID: [phone] MESSAGE: Re: Davion Florence RM [id number]. FYI pt stress test results are in. Can pt eat and what diet? Thank you Jo HOWARD [id number] Addendum: 05/16/20 at 1208 by Jo Mistry RN Dr. White responded to page and put pt on heart Healthy diet. will be here to evaluate patient and plan of care.
--- NOTE | 2020-05-16 12:06 | NUR ---
Pharmacy called about home medications that the patient had on history list. Folic Acid, Methotrexate, Molax[place] and Breoalipta are medications from past. Patient states he no longer takes. Will continue to monitor.
[2020-05-16] MEDS ORDERED: PANT40TA54 PO (12:29)
--- NOTE | 2020-05-16 12:49 | NUR ---
Patient OK to discharge per MD orders.Vital signs stable and test were OK. Patient was educated on the medications and education for discharge. Patient was dressed, PIV removed and Tele removed and returned. Patient was able to ambulate to elevator to meet in front of Lobby. All patients personal items were collected and sent with patient. Patient appeared to understand all directions and was able to ID the needs going forward. Patient and also stated that they will be following up with Dr. Cox with the week to make sure all is well.
== END 2020-05-16 12:50 | disposition home or self-care (01) | DRG 303 ==
LOC: ER 22:29 → ED HOLD 05-16 00:26 → PCU 3S 05-16 01:30
PROVIDERS: ADMIT Internal Medicine; ATTEND Internal Medicine
PROC: 4A02XM4 Measurement of Cardiac Total Activity, External Approach (ICD-10-PCS; principal; 2020-05-16)
PROC: 3E073KZ Introduction of Other Diagnostic Substance into Coronary Artery, Percutaneous Approach (ICD-10-PCS; 2020-05-16)
DX: I25.118 Atherosclerotic heart disease of native coronary artery with other forms of angina pectoris (principal); E78.00 Pure hypercholesterolemia, unspecified; E78.5 Hyperlipidemia, unspecified; J44.9 Chronic obstructive pulmonary disease, unspecified; I95.9 Hypotension, unspecified; M17.10 Unilateral primary osteoarthritis, unspecified knee; Z80.0 Family history of malignant neoplasm of digestive organs; Z80.1 Family history of malignant neoplasm of trachea, bronchus and lung; I25.2 Old myocardial infarction; Z83.3 Family history of diabetes mellitus; Z87.891 Personal history of nicotine dependence; Z95.1 Presence of aortocoronary bypass graft; Z95.5 Presence of coronary angioplasty implant and graft; Z88.5 Allergy status to narcotic agent; Z79.899 Other long term (current) drug therapy; Z79.82 Long term (current) use of aspirin
CPT/HCPCS: 36415; 71045; 78452; 80053; 83036; 83880; 84484; 85025; 87081; 93005; 93017; 99285; A9500; G0378; J2785

== ENCOUNTER 2020-06-28 13:18 | Emergency (ER) | payer MEDICARE, BC ==
[~2020-06-28] VITALS: Ht 175.3 cm; Wt 78.2 kg
[~2020-06-28 13:18] MED LIST changes: -ATOR20TA66 PO; -BUDE10.2 INH; -CHOL100044 PO; -CYAN500T46 PO; -CYCL-394 PO; -DIGO125T97 PO; +EZET10TA6 PO; -FLO0.4C PO; -FOLI0.4T14 PO; -FURO-150 PO; -LEVO750T21 PO; -LISI-604 PO; -LORA10TA7 PO; -MELO-100 PO; -METO-384 PO; -OLAN5TAB26 PO; -PANT20TA18 PO; +PANT40TA54 PO; -RIVA20TA PO; -SPIR25TA5 PO; -VENL75TA4 PO; -ZET10T PO
[2020-06-28] MEDS ORDERED: acetaminophen 325mg tablet PO ONE (14:30)
[2020-06-28] MEDS ORDERED: normal saline 1000ml 1,000 ML IV ONE (15:15)
[2020-06-28 15:24] LABS: BASOPHILS % (AUTO) 0.3 % (0-1); EOSINOPHILS # (AUTO) 0.2 X10'3 (0-0.9); EOSINOPHILS % (AUTO) 1.9 % (0-6); HEMATOCRIT 38.3 % (42.0-52.0); HEMOGLOBIN 12.9 g/dl (14.0-17.9); LYMPHOCYTES # (AUTO) 0.9 X10'3 (1.1-4.8); LYMPHOCYTES % (AUTO) 8.1 % (21-51); MEAN CORPUSCULAR HGB CONC 33.6 g/dL (33.0-36.5); MEAN CORPUSCULAR VOLUME 92.2 FL (78-98); MEAN PLATELET VOLUME 7.1 FL (7.4-10.4); MONOCYTES # (AUTO) 0.8 X10'3 (0-0.9); MONOCYTES % (AUTO) 7.4 % (2-12); NEUTROPHILS # (AUTO) 9.2 X10'3 (1.8-7.7); NEUTROPHILS % (AUTO) 82.3 % (42-75); PLATELET COUNT 316 X10'3 (140-440); RED BLOOD COUNT 4.16 X10'6 (4.70-6.10); WHITE BLOOD COUNT 11.1 X10'3 (4.5-11.0)
[2020-06-28 15:35] LABS: ALANINE AMINOTRANSFERASE 13 U/L (12-78); ALBUMIN 3.4 G/DL (3.4-5.0); ALBUMIN/GLOBULIN RATIO 0.8 (1.1-1.5); ALKALINE PHOSPHATASE 77 IU/L (46-116); ANION GAP 9 (8-16); ASPARTATE AMINO TRANSFERASE 14 U/L (10-37); BILIRUBIN,TOTAL 0.6 MG/DL (0.1-1.0); BLOOD UREA NITROGEN 13 MG/DL (7-18); BUN/CREATININE RATIO 12.1 (5.4-32.0); CHLORIDE 103 MMOL/L (99-107); CREATININE 1.07 MG/DL (0.60-1.10); GLUCOSE 101 MG/DL (70-104); SODIUM 137 MMOL/L (135-145); TOTAL CARBON DIOXIDE 24.6 MMOL/L (24-32); TOTAL PROTEIN 7.7 G/DL (6.4-8.2); eGFR 67 ML/MIN
[2020-06-28 16:28] LABS: CLARITY,URINE CLEAR (Clear); COLOR,URINE YELLOW (Yellow); GLUCOSE, URINE NEGATIVE (Neg); KETONES,URINE TRACE mg/dl (Neg); LEUKOCYTE ESTERASE ,URINE NEGATIVE (Neg); NITRITES, URINE NEGATIVE (Neg); OCCULT BLOOD,URINE TRACE-INTACT (Neg); PH,URINE 5.5 (4.8-8.0); PROTEIN,URINE NEGATIVE (Neg); UROBILINOGEN,URINE 0.2 E.U/dL (0.2-1.0)
[2020-06-28 16:33] LABS: UA COLLECTION TYPE CLN CATCH MIDSTREAM
[2020-06-28 16:37] LABS: MUCUS STRANDS MODERATE /LPF (Neg); SQUAMOUS EPITHELIAL CELL,UR FEW /LPF (FEW)
[2020-06-28 16:38] LABS: BACTERIA,URINE FEW /HPF (Neg); WBC,URINE 0-4 /HPF (0-4)
[2020-06-28 17:27] VITALS: BP 104/71
--- NOTE | 2020-06-28 17:30 | NUR ---
ekg completed. Covid swab collected. dc iv intact and site clear.
== END 2020-06-28 17:34 | disposition home or self-care (01) ==
LOC: ER 13:19
DX: R50.9 Fever, unspecified (principal); R05 Cough; R06.02 Shortness of breath; Z20.828 Contact with and (suspected) exposure to other viral communicable diseases; R35.0 Frequency of micturition; I25.10 Atherosclerotic heart disease of native coronary artery without angina pectoris; E78.00 Pure hypercholesterolemia, unspecified; I25.2 Old myocardial infarction; J44.9 Chronic obstructive pulmonary disease, unspecified; Z85.9 Personal history of malignant neoplasm, unspecified; Z98.890 Other specified postprocedural states; Z88.5 Allergy status to narcotic agent; Z79.82 Long term (current) use of aspirin; Z79.899 Other long term (current) drug therapy
CPT/HCPCS: 36415; 71045; 80053; 81001; 83605; 83735; 84145; 85025; 87040; 87635; 93005; 99285

== ENCOUNTER 2020-09-12 18:07 | Emergency (ER) | payer MEDICARE, BC ==
[~2020-09-12] VITALS: Ht 175.3 cm; Wt 82.0 kg
[2020-09-12 22:18] LABS: BASOPHILS % (AUTO) 0.4 % (0-1); EOSINOPHILS # (AUTO) 0.2 X10'3 (0-0.9); EOSINOPHILS % (AUTO) 2.8 % (0-6); HEMATOCRIT 38.9 % (42.0-52.0); HEMOGLOBIN 13.1 g/dl (14.0-17.9); LYMPHOCYTES # (AUTO) 1.2 X10'3 (1.1-4.8); LYMPHOCYTES % (AUTO) 14.3 % (21-51); MEAN CORPUSCULAR HGB CONC 33.6 g/dL (33.0-36.5); MEAN CORPUSCULAR VOLUME 92.3 FL (78-98); MEAN PLATELET VOLUME 6.6 FL (7.4-10.4); MONOCYTES % (AUTO) 10.9 % (2-12); NEUTROPHILS # (AUTO) 6.3 X10'3 (1.8-7.7); NEUTROPHILS % (AUTO) 71.6 % (42-75); PLATELET COUNT 466 X10'3 (140-440); RED BLOOD COUNT 4.21 X10'6 (4.70-6.10); RED CELL DISTRIBUTION WIDTH 14.3 % (11.5-14.5); WHITE BLOOD COUNT 8.8 X10'3 (4.5-11.0)
[2020-09-12 22:25] LABS: ALANINE AMINOTRANSFERASE 14 U/L (12-78); ALBUMIN 3.1 G/DL (3.4-5.0); ALBUMIN/GLOBULIN RATIO 0.7 (1.1-1.5); ALKALINE PHOSPHATASE 63 IU/L (46-116); ANION GAP 8 (8-16); ASPARTATE AMINO TRANSFERASE 25 U/L (10-37); BILIRUBIN,TOTAL 0.4 MG/DL (0.1-1.0); BLOOD UREA NITROGEN 26 MG/DL (7-18); BUN/CREATININE RATIO 21.1 (5.4-32.0); CALCIUM 9.5 MG/DL (8.5-10.1); CHLORIDE 104 MMOL/L (99-107); CREATININE 1.23 MG/DL (0.60-1.10); GLUCOSE 113 MG/DL (70-104); POTASSIUM 4.4 MMOL/L (3.5-5.1); SODIUM 141 MMOL/L (135-145); TOTAL CARBON DIOXIDE 28.7 MMOL/L (24-32); TOTAL PROTEIN 7.7 G/DL (6.4-8.2); eGFR 57 ML/MIN
[2020-09-13 01:23] VITALS: BP 131/89
== END 2020-09-13 01:26 | disposition home or self-care (01) ==
LOC: ER 18:07
DX: M25.561 Pain in right knee (principal); M25.562 Pain in left knee; R60.0 Localized edema; I25.10 Atherosclerotic heart disease of native coronary artery without angina pectoris; E78.00 Pure hypercholesterolemia, unspecified; R06.89 Other abnormalities of breathing; I25.2 Old myocardial infarction; J44.9 Chronic obstructive pulmonary disease, unspecified; Z98.61 Coronary angioplasty status; Z95.1 Presence of aortocoronary bypass graft; Z98.890 Other specified postprocedural states; Z87.891 Personal history of nicotine dependence; Z88.5 Allergy status to narcotic agent; Z79.82 Long term (current) use of aspirin; Z79.899 Other long term (current) drug therapy
CPT/HCPCS: 36415; 71045; 73130; 73560; 80053; 83880; 84484; 85025; 85651; 93005; 93970; 99285

== ENCOUNTER 2020-12-19 20:41 | Emergency (ER) | payer MEDICARE, BC ==
[~2020-12-19] VITALS: Ht 175.3 cm; Wt 82.5 kg
[2020-12-19 21:37] LABS: BASOPHILS % (AUTO) 0.6 % (0-1); EOSINOPHILS # (AUTO) 0.3 X10'3 (0-0.9); EOSINOPHILS % (AUTO) 4.1 % (0-6); HEMOGLOBIN 10.9 g/dl (14.0-17.9); LYMPHOCYTES # (AUTO) 0.9 X10'3 (1.1-4.8); LYMPHOCYTES % (AUTO) 14.3 % (21-51); MEAN CORPUSCULAR HEMOGLOBIN 29.7 PG (27.0-31.0); MEAN CORPUSCULAR HGB CONC 32.9 g/dL (33.0-36.5); MEAN CORPUSCULAR VOLUME 90.3 FL (78-98); MEAN PLATELET VOLUME 7.1 FL (7.4-10.4); MONOCYTES # (AUTO) 0.7 X10'3 (0-0.9); NEUTROPHILS # (AUTO) 4.6 X10'3 (1.8-7.7); PLATELET COUNT 277 X10'3 (140-440); RED BLOOD COUNT 3.66 X10'6 (4.70-6.10); RED CELL DISTRIBUTION WIDTH 16.9 % (11.5-14.5); WHITE BLOOD COUNT 6.5 X10'3 (4.5-11.0)
[2020-12-19 21:50] LABS: ALANINE AMINOTRANSFERASE 27 U/L (12-78); ALBUMIN/GLOBULIN RATIO 0.9 (1.1-1.5); ALKALINE PHOSPHATASE 71 IU/L (46-116); ANION GAP 7 (8-16); ASPARTATE AMINO TRANSFERASE 25 U/L (10-37); BILIRUBIN,TOTAL 0.2 MG/DL (0.1-1.0); BLOOD UREA NITROGEN 19 MG/DL (7-18); BUN/CREATININE RATIO 19.2 (5.4-32.0); CALCIUM 8.7 MG/DL (8.5-10.1); CHLORIDE 107 MMOL/L (99-107); CREATININE 0.99 MG/DL (0.60-1.10); GLUCOSE 106 MG/DL (70-104); POTASSIUM 4.1 MMOL/L (3.5-5.1); SODIUM 141 MMOL/L (135-145); TOTAL CARBON DIOXIDE 26.6 MMOL/L (24-32); TOTAL PROTEIN 6.3 G/DL (6.4-8.2); eGFR 73 ML/MIN
[2020-12-19] MEDS ORDERED: aspirin 81mg tab.chew PO ONE (22:05)
[2020-12-20 00:54] VITALS: BP 114/72
== END 2020-12-20 00:57 | disposition home or self-care (01) ==
LOC: ER 20:43
DX: M54.2 Cervicalgia (principal); R06.02 Shortness of breath; R68.84 Jaw pain; I25.10 Atherosclerotic heart disease of native coronary artery without angina pectoris; E78.00 Pure hypercholesterolemia, unspecified; I25.2 Old myocardial infarction; J44.9 Chronic obstructive pulmonary disease, unspecified; Z95.1 Presence of aortocoronary bypass graft; Z98.61 Coronary angioplasty status; Z98.890 Other specified postprocedural states; Z88.5 Allergy status to narcotic agent; Z79.82 Long term (current) use of aspirin; Z79.899 Other long term (current) drug therapy
CPT/HCPCS: 36415; 71045; 80053; 83880; 84484; 85025; 93005; 99285

== ENCOUNTER 2021-01-05 11:04 | Day surgery (SDC) | payer MEDICARE, BC ==
[2021-01-05] VITALS (9 sets, daily range): BP systolic 92–119; BP diastolic 53–78
[~2021-01-05] VITALS: Ht 175.3 cm; Wt 85.8 kg
[2021-01-05] MEDS ORDERED: METH2.5T PO (11:37)
[2021-01-05] MEDS ORDERED: ROSU10TA28 PO (11:37)
[2021-01-05] MEDS ORDERED: PRE5T PO (11:37)
[2021-01-05] MEDS ORDERED: MELO-102 PO (11:37)
[2021-01-05] MEDS ORDERED: Folic Acid PO (11:40)
[2021-01-05] MEDS ORDERED: TADA5TAB2 PO (11:40)
[2021-01-05] MEDS ORDERED: LORazepam 0.5 MG tablet PO PRN (11:55)
[2021-01-05] MEDS ORDERED: normal saline 1,000 ML IV SCH (11:55)
[2021-01-05] MEDS ORDERED: diphenhydrAMINE 25mg capsule PO PRN (11:55)
[2021-01-05] MEDS ORDERED: midazolam 1 mg/ML 2ml injection ONE (12:02)
[2021-01-05] MEDS ORDERED: fentaNYL/PF 50MCG/1 ML 2ML syringe ONE (12:02)
[2021-01-05] MEDS ORDERED: LIDOcaine 1% (10mg/ml)w/preservative injection 20ml MDV ONE (12:03)
[2021-01-05] MEDS ORDERED: iohexol 350MG/ML 100ml bottle IV ONE (12:03)
[2021-01-05] MEDS ORDERED: iohexol 350 MG/ML 50ML vial IV ONE (12:57)
[2021-01-05] MEDS ORDERED: HYDROcodone/acetaminophen 5mg/325mg tablet PO PRN (13:45)
[2021-01-05] MEDS ORDERED: HYDROcodone/acetaminophen 10/325mg tab PO PRN (13:45)
[2021-01-05] MEDS ORDERED: OXAZEpam 15mg capsule PO PRN (13:45)
[2021-01-05] MEDS ORDERED: ondansetron/PF 4mg/2ml inj IV PRN (13:45)
[2021-01-05] MEDS ORDERED: proCHLORperazine 10 MG/2 ml inj IV PRN (13:45)
== END 2021-01-05 17:06 | disposition home or self-care (01) ==
LOC: SSTAY O 11:04
PROVIDERS: ATTEND Internal Medicine Interventional Cardiology
DX: R07.9 Chest pain, unspecified (principal); R06.02 Shortness of breath
CPT/HCPCS: 93005; 93459; 93567; 99152; 99153; C1769; J1644; J2001; J2250; J3010; J7030; Q0163; Q9967; A4620; A6258